=== PATIENT | male | born 1990 | race Caucasian/White ===

== ENCOUNTER 2024-05-13 20:17 | Emergency (ER) | payer SELFPAY ==
[~2024-05-13] VITALS: Ht 180.3 cm; Wt 99.0 kg
[2024-05-13 21:32] VITALS: BP 134/75
[2024-05-13] MEDS ORDERED: Acetaminophen 300 MG/Codeine 30 MG/COMBO PO ONE (21:50)
[2024-05-13] MEDS ORDERED: IBUPROFEN 800 MG/TAB PO ONE (21:50)
[2024-05-13] MEDS ORDERED: AMOXICILLIN TRIHYDRATE 500 MG/CAP PO ONE (21:50)
[2024-05-13] MEDS ORDERED: AMOXICILLIN500 M2 PO (21:52)
[2024-05-13] MEDS ORDERED: MOTRIN800 MG PO (21:52)
[2024-05-15] MEDS ORDERED: AMOXICILLIN500 M2 PO (18:19)
== END 2024-05-13 22:05 | disposition home or self-care (01) | DRG 159 ==
LOC: ED 20:17
DX: K02.9 Dental caries, unspecified (principal); K04.7 Periapical abscess without sinus; F17.210 Nicotine dependence, cigarettes, uncomplicated